=== PATIENT | female | born 1985 | race Caucasian/White ===

== ENCOUNTER 2023-01-27 14:33 | Outpatient (AMB) | payer BC, SELFPAY ==
--- NOTE | 2023-01-27 15:35 | MHC.OFFVIS ---
Intake Intake Visit Reasons: F/U in PT to order MRI Assessment & Plan Assessment & Plan (1) Back pain: Code(s): M54.9 - Dorsalgia, unspecified Plan Mrs Pena is here in follow-up today. I last saw her about 6 or 7 months ago at our office in [facility] for chronic low back pain, she is status post L5-S1 anterior lumbar interbody fusion. She had great relief of her symptoms initially from surgery but about the last year so the back pain is been creeping back in. I initially wanted to order an MRI back when I saw her but her insurance denied it because of physical therapy. We Center through a extended course of physical therapy over few months with absolutely no improvement in her symptoms as we expected. She continues to take Tylenol, ibuprofen etc. as the pain can get severe at times. Her previous x-rays showed stable construct at the L5-S1 segment. I will now order the new MRI of the lumbar spine and call her with the results. Total amount of time spent in this visit was 20 minutes in discussion of symptoms, lumbar x-ray imaging results and subsequent plan of care Avinash Hoskins MD,PhD [facility] Orders: Orders MR lumbar spine wo con Today M54.9 - Dorsalgia, unspecified Coding Level of Care Code Tele Est Pt Level 3 (53780) Diagnoses Back pain M54.9
== END 2023-01-27 16:15 | disposition home or self-care (01) ==
PROVIDERS: PCP Internal Medicine; Visit Provider Physician Assistant
DX: M54.9 Dorsalgia, unspecified (principal)
CPT/HCPCS: 99442

== ENCOUNTER → 2023-01-27 14:33 | Outpatient (BNVA) | payer BC, SELFPAY | PROVIDERS: PCP Internal Medicine; Visit Provider Physician Assistant ==

== ENCOUNTER 2023-03-22 19:25 | Outpatient (REF) | payer BC, SELFPAY ==
--- NOTE | ~2023-03-22 | MR_ITS ---
EXAMINATION: MR LUMBAR SPINE WITHOUT CONTRAST CLINICAL INFORMATION: Back pain. COMPARISON: None available. TECHNIQUE: Multiplanar, multisequence imaging was obtained. FINDINGS: VERTEBRAL BODIES AND PARASPINAL STRUCTURES: The marrow signal is mildly heterogeneous with fatty changes. There is inferior endplate edema at the L4 level with a degenerative Schmorl's node. Reduced intradiscal signal without loss of disc height evident at the L4-L5 level with a slight retrosubluxation. No compression fractures are seen. The patient is status post previous anterior lumbar interbody fusion and posterior fusion at the L5-S1 level with hardware instrumentation. The paraspinal soft tissues are otherwise unremarkable. The imaged bony pelvis appears normal. CONUS MEDULLARIS AND CAUDA EQUINE: The distal cord, conus tip, and cauda equina nerve roots are normal. SPINAL LEVELS: L1-L2: Well-hydrated disc. No central canal stenosis or foraminal narrowing. L2-L3: Shallow right foraminal disc protrusion contacting and mildly impressing upon the exiting right L2 nerve root with mild right foraminal encroachment. No central canal stenosis. Mild facet arthropathy. L3-L4: Mild posterior disc bulge and annular fissure slightly impressing upon the ventral thecal sac. Mild facet arthropathy. No central canal stenosis or foraminal narrowing. L4-L5: Mild degenerative endplate changes and concentric disc bulge with hypertrophic facet arthropathy. No central canal stenosis or foraminal narrowing. L5-S1: Status post anterior and posterior lumbar interbody fusion with a small central desiccated disc protrusion. No nerve root impingement or central canal stenosis. Osseous spurring results in mild left foraminal encroachment. MR/MR lumbar spine wo con IMPRESSION: 1. Shallow right foraminal disc protrusion at the L2-L3 level mildly impressing upon the right L2 nerve root with mild right foraminal encroachment. 2. Mild degenerative endplate changes and disc bulge at the L4-L5 level without central canal stenosis or foraminal narrowing. 3. Status post anterior and posterior lumbar interbody fusion at the L5-S1 level with a small central disc protrusion. No nerve root impingement or central canal stenosis.
== END 2023-03-22 19:26 | disposition home or self-care (01) ==
LOC: HO.MRI 19:25
PROVIDERS: PCP Internal Medicine; Visit Provider Physician Assistant
DX: M54.9 Dorsalgia, unspecified (principal)
CPT/HCPCS: 72148

== ENCOUNTER 2023-05-26 11:20 | Outpatient (AMB) | payer BC, SELFPAY ==
--- NOTE | 2023-05-26 11:35 | HO.SPINEOV ---
Intake Intake Visit Reasons: mri follow up Intake Note: Ms. Pena is here today to discuss the results of her MRI. Human Factors Scientist Required: No Assessment & Plan Assessment & Plan (1) Back pain: Code(s): M54.9 - Dorsalgia, unspecified Plan Mrs Pena is following up in the office today. A few years ago we did an L5-S1 anterior lumbar interbody fusion. Unfortunately she did not have tremendous success with that. She still feels like for the most part the pain is about the same. We did a follow-up MRI here at [place], and I compared that to the 1 done in 2020 before surgery and [place] and this showed that there has been some ongoing degeneration and reactive changes in the bone. There is some other mild low-grade degenerative changes above but otherwise I think that the L4-5 could be contributing to her pain. It is not 100% guarantee however. We discussed the fact that back pain can be elusive to the exact source and that surgical decision making is based on trying to match a clinical picture with imaging but that often discs are not the source of our patients pain. At this time she is not interested in more surgery. If things get worse down the road she will contact us and we could consider possible fusion on that L4-5 disc. Total amount of time spent in this visit was 20 minutes in discussion of symptoms, lumbar imaging results and subsequent plan of care Avinash Hoskins MD,PhD [facility] Coding Level of Care Code Est Pt Level 3 (93308) Diagnoses Back pain M54.9
== END 2023-05-26 12:22 | disposition home or self-care (01) ==
PROVIDERS: PCP Internal Medicine; Visit Provider Physician Assistant
DX: M54.9 Dorsalgia, unspecified (principal)
CPT/HCPCS: 99213

== ENCOUNTER → 2023-05-26 11:20 | Outpatient (BNVA) | payer BC, SELFPAY | PROVIDERS: PCP Internal Medicine; Visit Provider Physician Assistant ==

== ENCOUNTER 2024-01-12 14:24 | Outpatient (AMB) | payer BC, SELFPAY ==
--- NOTE | 2024-01-12 14:43 | A.SPINEOV_ITS ---
Intake Visit Reasons: pain neck/back Intake Note: Ms. Pena is here today c/o neck/back pain. Supervisor Shaving And Splitting Required: No Allergies No Known Allergies Allergy (Verified 01/12/24 14:55) Assessment & Plan Assessment & Plan (1) Neck pain: Code(s): M54.2 - Cervicalgia Category: Medical Plan MRs Pena is here in follow-up. Over the last few years she has had ongoing neck pain that she has just been trying to deal with. She can take ibuprofen or Tylenol but they do not really seem to help her do anything. She has not done any physical therapy for it yet or any dedicated conservative treatment. The pain is in the upper part of her cervical spine and can radiate down in between her shoulder blades. It bothers her all day, and can even bother her when she is sleeping. There is no pain radiating down the arms, tingling or numbness. I examined her in her neurological exam reveals full strength and normal reflexes. I am suspicious we may be dealing with a degenerative disc similar to what she had in her lumbar spine. I would like to get an MRI to further evaluate. Total amount of time spent in this visit was 20 minutes in discussion of symptoms, order imaging and subsequent plan of care Avinash Hoskins MD,PhD [facility] Orders: Orders MR cervical spine wo con Today M54.2 - Cervicalgia Coding Level of Care Code Est Pt Level 3 (40921) Diagnoses Neck pain M54.2
== END 2024-01-12 15:11 | disposition home or self-care (01) ==
PROVIDERS: PCP Internal Medicine; Visit Provider Physician Assistant
DX: M54.2 Cervicalgia (principal)
CPT/HCPCS: 99213

== ENCOUNTER → 2024-01-12 14:24 | Outpatient (BNVA) | payer BC, SELFPAY | PROVIDERS: PCP Internal Medicine; Visit Provider Physician Assistant ==

== ENCOUNTER 2024-02-21 07:15 | Outpatient (REF) | payer BC, SELFPAY ==
--- NOTE | ~2024-02-21 | MR_ITS ---
MR CERVICAL SPINE WITHOUT CONTRAST CLINICAL INFORMATION: Cervicalgia. COMPARISON: None available. TECHNIQUE: Multiplanar multisequence MR imaging of the cervical spine obtained without IV contrast. FINDINGS: Cervical alignment is normal. Vertebral body heights are maintained. Disc volumes are preserved. There is no bone marrow edema. There are no acute fractures. The craniocervical junction is unremarkable. Cervical arterial flow voids are maintained. There are no cervical spinal cord signal changes. The partially imaged intracranial compartment is unremarkable. C2-C3: Posterior disc contour is normal. There is no central canal stenosis and there is no foraminal stenosis. C3-C4: Uncovertebral joint spurring and facet arthropathy result in mild bilateral foraminal encroachment. No central canal stenosis. C4-C5: Uncovertebral joint spurring and facet arthropathy result in mild bilateral foraminal encroachment. No central canal stenosis. C5-C6: Uncovertebral joint spurring and facet arthropathy result in mild to moderate right and mild left foraminal encroachment. No central canal stenosis. C6-C7: Uncovertebral joint spurring and facet arthropathy result in mild to moderate left and mild right foraminal encroachment. No central canal stenosis. C7-T1: Posterior disc contour is normal. No central canal stenosis and no foraminal stenosis. MR/MR cervical spine wo con IMPRESSION: Mild cervical spondylosis. Multifactorial degenerative changes result in mild to moderate right C5-C6 and mild to moderate left C6-C7 foraminal stenosis. There is no severe central canal stenosis within the cervical spine. Electronically signed by: Guerrero Shirley MD 03/16/2024 04:57 PM EDT
== END 2024-02-21 07:16 | disposition home or self-care (01) ==
LOC: HO.MRI 07:15
PROVIDERS: PCP Internal Medicine; Visit Provider Physician Assistant
DX: M54.2 Cervicalgia (principal)
CPT/HCPCS: 72141

== ENCOUNTER 2024-04-05 14:14 | Outpatient (AMB) | payer BC, SELFPAY ==
--- NOTE | 2024-04-05 14:23 | HO.SPINEOV ---
Intake Visit Reasons: Back pain Intake Note: Ms. Pena is here today c/o Low back pain. Lithograph Printer Required: No Allergies No Known Allergies Allergy (Verified 01/12/24 14:55) Assessment & Plan Assessment & Plan (1) Back pain: Code(s): M54.9 - Dorsalgia, unspecified Category: Medical Plan Mrs Pena is back today in the office to re-evaluate her low back pain. We did an anterior lumbar interbody fusion on her a number of years ago and unfortunately she has not seen the kind of success from that that we were hoping. She feels like it may have done a little bit for her back pain but nothing major. There is centralized and bilateral paraspinal pain in her back throughout most of the day. It can be present at night when she is turning over and during the day when she is up doing activities. If she does something simple like try to more her lawn, she will spend a number of days if not weeks recovering until she can get back to her normal self. She feels as though she is getting to the point now where she can hardly do anything without tremendous amounts of back pain. She has no pain going down the legs. She tried gabapentin and Flexeril and this gives her a little bit of relief. Ubyj-ryy-gyjzyru meds like Tylenol Motrin really have done nothing for her. She went through postoperative PT and continues do the home exercises. Last year we did an MRI of her lumbar spine and this showed that she had a little bit of degeneration above her previous operation site but nothing significant. I am going to repeat the MRI because she is just continuing to get worse over time. 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 I will get flexion-extension x-rays just as a precaution as well. I will see her back to review everything together. Total amount of time spent in this visit was 20 minutes in discussion of symptoms, ordering MRI imaging and subsequent plan of care Avinash Hoskins MD,PhD [facility] Orders: Orders XR lumbar spine 4V min Today M54.9 - Dorsalgia, unspecified MR lumbar spine wo con Today M54.9 - Dorsalgia, unspecified Coding Level of Care Code Est Pt Level 3 (20226) Diagnoses Back pain M54.9
== END 2024-04-05 15:49 | disposition home or self-care (01) ==
PROVIDERS: PCP Internal Medicine; Visit Provider Physician Assistant
DX: M54.9 Dorsalgia, unspecified (principal)
CPT/HCPCS: 99213

== ENCOUNTER 2024-04-05 14:14 | Outpatient (REF) | payer BC, SELFPAY | END 2024-04-05 14:15 | disposition home or self-care (01) | LOC: HO.HOSX 14:14 | PROVIDERS: PCP Internal Medicine; Visit Provider Physician Assistant | DX: Z13.89 Encounter for screening for other disorder (principal) ==

== ENCOUNTER → 2024-05-06 09:51 | Outpatient (BNV) | payer BC, SELFPAY | PROVIDERS: PCP Internal Medicine; Visit Provider Radiology Diagnostic Radiology | DX: M54.9 Dorsalgia, unspecified (principal) | CPT/HCPCS: 72148 ==

== ENCOUNTER 2024-05-06 09:58 | Outpatient (REF) | payer BC, SELFPAY ==
--- NOTE | ~2024-05-06 | XR_ITS ---
EXAMINATION: XR LUMBAR SPINE 4 VIEWS CLINICAL INFORMATION: Dorsalgia, unspecified M54.9. Patient states pain in low back for about a decade, history of L5-L3ukuaoz fusion. COMPARISON: MR Lumbar spine 03/22/2023 TECHNIQUE: 4 views of lumbar spine. FINDINGS: Patient is status post L5-S1 spinal fusion. Orthopedic hardware including posterior spinal fusion hardware. Hardware is intact. No suspicious perihardware lucency is identified. No evidence of acute fracture. Mild L4-5 disc space narrowing. Mild rightward curvature of the spine. No significant subluxation is evident on the flexion-extension views. SI joints are intact. No suspicious soft tissue calcifications. XR/XR lumbar spine 4V min IMPRESSION: Status post L5-S1 spinal fusion, with radiographic findings to suggest hardware complications. Study is assigned for dictation on June 26, 2024 Electronically signed by: Derrick Forte MD 06/26/2024 02:50 PM [facility]
--- NOTE | ~2024-05-06 | MR_ITS ---
EXAMINATION: MR LUMBAR SPINE WITHOUT CONTRAST CLINICAL INFORMATION: Low back pain, history of spinal fusion in 2020. COMPARISON: MR lumbar 03/22/2023. TECHNIQUE: Multiplanar multisequence MR imaging of the lumbar spine was done without IV contrast. Examination was performed on a 1.5 Madina Siemens magnet, utilizing standard sequences. Exam submitted for review 07/01/2024 10:40 AM TRAUMA SURGEON. FINDINGS: CORONAL ALIGNMENT: -Normal. SAGITTAL ALIGNMENT: -Mild straightening of the normal lordosis, nonspecific. -No subluxations. LUMBOSACRAL JUNCTION: -Normal. There are 5 [id number] lumbar-type vertebral bodies. VERTEBRAL BODIES/BONE MARROW: -There is a prominent hemangioma in the L4 vertebral body. -There is been fusion of L5-S1 with disc prosthesis, oblique interbody pancreas, and posterior bilateral pedicle screws and connecting rods. There have been associated L4 laminotomies bilaterally. Hardware creates susceptibility artifact, limiting evaluation of immediately adjacent soft tissue and bone. -There are edematous type endplate changes present at L4-5. -There are is no additional bone marrow edema or abnormal infiltrating bone marrow signal. DISCS: -Fusion of L5-S1. There is bony fusion through the disc space. -Mild to moderate loss of height and signal spanning L2-L5, worst at L4-5. -Discs above L2 are normal in height and signal. SPINAL CANAL: -No abnormal developmental findings. CONUS MEDULLARIS: -Terminates at inferior endplate of L1. Morphology and signal is normal. INTRADURAL NERVE ROOTS: - No clumping, mass, or other abnormality. Normal distribution. Axial Disc Space Images: T12-L1: Only seen sagittally. No central canal or neural foraminal narrowing. No change. L1-L2: Mild degenerative facet changes are present bilaterally. No central canal or neural foraminal narrowing. No change. L2-L3: Minimal diffuse bulging disc, possibly physiologic. Previously seen right foraminal protrusion of disc material and smaller on today's exam. There is mild degenerative facet change bilaterally. There is minimal central canal narrowing, no significant subarticular recess narrowing, and mild right neural foraminal narrowing. L3-L4: Shallow diffuse disc bulging is present concentrically involving both foraminal zones with central annular fissuring. This indents minimally upon the ventral thecal sac, and coupled with mild to moderate left greater than right hypertrophic degenerative facet changes, posterior ligamentous thickening/infolding, is resulting in mild central canal stenosis, mild to moderate left subarticular recess stenosis with contact but no definite impingement of the traversing left L4 roots. There is mild bilateral neural foraminal narrowing left greater than right. There is been no interval change at this level. L4-L5: Shallow diffuse disc bulge is present concentrically involving both foraminal zones, with a superimposed small central disc protrusion. Coupled with moderate right greater than left hypertrophic degenerative facet changes, mild posterior ligamentous thickening/infolding, combination of findings is resulting in mild to moderate central canal stenosis, moderate left greater than right subarticular recess stenosis with contact and possible minimal impingement upon the traversing left L5 roots. There is contact but no deviation of the traversing right L5 roots. There is mild bilateral neural foraminal narrowing without evidence of exiting nerve root impingement. Findings appear slightly worsened at this level, particularly the left lateral recess narrowing. L5-S1: Posterior fusion and discectomy. There is bony fusion through the disc space. There is a central protrusion of disc osteophytic material, minimally indenting upon the ventral epidural space without contacting the thecal sac. There are mild bilateral hypertrophic degenerative facet changes. There is no central canal, or lateral recess narrowing. There is mild bilateral neural foraminal narrowing. No significant change at this level. IMAGED SI JOINTS: -Mild degenerative arthrosis bilaterally. PARAVERTEBRAL AND INCLUDED EXTRASPINAL SOFT TISSUES: -Normal caliber aorta. Paraspinous musculature normal. No abnormalities detected. MR/MR lumbar spine wo con IMPRESSION: 1. Stable fusion L5-S1 with complete bony fusion through the disc space. Hardware creates localized susceptibility artifact. No significant central canal or neural foraminal narrowing at L5-S1. 2. Compared with 03/22/2023, mild worsening of left lateral recess narrowing at L4-5. Edematous endplate changes at this level. See above for details. 3. Mild spondylotic findings at L2-3, L3-4, and L5-S1 are unchanged. 4. See the body the report for ancillary findings and further details. Electronically signed by: Yinka Rodriges MD 07/01/2024 11:56 AM EST
== END 2024-05-06 09:59 | disposition home or self-care (01) ==
LOC: HO.MRI 09:58
PROVIDERS: PCP Internal Medicine; Visit Provider Physician Assistant
DX: M54.9 Dorsalgia, unspecified (principal)
CPT/HCPCS: 72110; 72148

== ENCOUNTER 2024-06-06 15:04 | Outpatient (AMB) | payer BC, SELFPAY ==
--- NOTE | 2024-06-06 15:15 | A.SPINEOV_ITS ---
Intake Visit Reasons: f/up MRI Intake Note: Ms. Pena is here today to discuss the results of her MRI. Supervisor Functional Testing Required: No Allergies No Known Allergies Allergy (Verified 01/12/24 14:55) Assessment & Plan Assessment & Plan (1) Neck pain: Code(s): M54.2 - Cervicalgia Category: Medical (2) Back pain: Code(s): M54.9 - Dorsalgia, unspecified Category: Medical Plan Mrs Pena is here in follow up to review her lumbar and cervical MRIs. We sat down went over them and looked at them extensively. I palpated her back and she does not have any pain over where the Tulip heads are located for the screw so I do not think it is coming from a hardware issue. She has a solid fusion in the interbody space. She has some modest degeneration above her fusion but otherwise everything looks as it should. I do not see anything that would explain the degree of pain that she is having in her back. Unfortunately there is no surgery we can do to help fix it. She has no specific restrictions. She has been taking gabapentin that seems to help. She can follow up with us on an as-needed basis. Total amount of time spent in this visit was 20 minutes in discussion of symptoms, lumbar and cervical imaging results and subsequent plan of care Avinash Hoskins MD,PhD [facility] Coding Level of Care Code Est Pt Level 3 (48860) Diagnoses Neck pain M54.2 Back pain M54.9
== END 2024-06-06 16:22 | disposition home or self-care (01) ==
PROVIDERS: PCP Internal Medicine; Referring Provider Internal Medicine; Visit Provider Physician Assistant
DX: M54.2 Cervicalgia (principal); M54.9 Dorsalgia, unspecified
CPT/HCPCS: 99213